=== PATIENT | male | born 1985 | race Caucasian/White ===

== ENCOUNTER 2016-11-16 14:05 | Emergency (ER) | payer SELFPAY ==
[~2016-11-16] VITALS: Ht 175.3 cm; Wt 105.0 kg
[~2016-11-16 14:05] MED LIST: TRAM50 PO; ZOFR4TAB3 SL
[2016-11-16 14:09] VITALS: BP 171/96; PULSE 111; RESP 16; TEMP 98.1; O2SAT 95
--- NOTE | 2016-11-16 14:42 | PD ---
HPI Chief Complaint: Hypertension Time Seen by Provider: 14:41 Travel History International Travel<30 days: No Contact w/Intl Traveler<30days: No Traveled to known affect area: No History of Present Illness HPI 31-year-old male came to the emergency room with history of not feeling good. He checked his blood pressure earlier today and it was 170 systolic. He decided to go to [facility]. Patient was unhappy with the fact that they had done only a CAT scan of his head and he was told that everything was normal and he was discharged home on Fioricet. Patient is concerned that there is something more going on. He seems really anxious. His blood pressure in triage was 172 systolic and heart rate of 111. He says he's been feeling some tingling in both his hands. There is history of hypertension and diabetes that runs in the family. He is currently is not on any medications. He does not have a primary care doctor. He is a smoker and works as a cook in a restaurant. He says lately the job has been stressful. [facility] Past Medical History Narrative Medical List of his past medical, surgical, social and family history was reviewed from the nursing note. Asthma: Yes (SPORTS RELATED A CHILD) Blood Disorders: No Anxiety: No Depression: No Cancer: No Cardiovascular Problems: No Chemotherapy: No Diabetes: No Diminished Hearing: No Endocrine: No Genitourinary: No Herniated Disk: Yes Immune Disorder: No Musculoskeletal: Yes Neurologic: No Psychiatric: No Reproductive: No Respiratory: Yes Radiation Therapy: No Thyroid Disease: No Past Surgical History Abdominal Surgery: No AICD: No Arteriovenous Shunt: No Cardiac Surgery: No Ear Surgery: No Endocrine Surgery: No Eye Surgery: No Genitourinary Surgery: No Gynecologic Surgery: No Insulin Pump: No Joint Replacement: No Neurologic Surgery: No Oral Surgery: No Pacemaker: No Thoracic Surgery: No Other Surgery: Yes Social History Alcohol Use: Yes (SOC) Tobacco Use: Yes (1 PPD) Substance Use: No Allergies-Medications (Allergen,Severity, Reaction): Coded Allergies: No Known Allergies (Verified , 11/16/16) Comments No known drug allergies. Reported Meds & Prescriptions Reported Meds & Active Scripts Active No Active Prescriptions or Reported Medications Narrative Medication List of his home medications reviewed from the nursing note. Review of Systems Except as stated in HPI: all other systems reviewed are Neg Physical Exam Narrative GENERAL: Awake, alert, anxious, obese SKIN: Warm and dry. HEAD: Atraumatic. Normocephalic. EYES: Pupils equal and round. No scleral icterus. No injection or drainage. ENT: No nasal bleeding or discharge. Mucous membranes pink and moist. NECK: Trachea midline. No JVD. CARDIOVASCULAR: Regular rate and rhythm. No murmur appreciated. RESPIRATORY: No accessory muscle use. Clear to auscultation. Breath sounds equal bilaterally. GASTROINTESTINAL: Abdomen soft, non-tender, nondistended. Hepatic and splenic margins not palpable. MUSCULOSKELETAL: No obvious deformities. No clubbing. No cyanosis. No edema. NEUROLOGICAL: Awake and alert. No obvious cranial nerve deficits. Motor grossly within normal limits. Normal speech. PSYCHIATRIC: Appropriate mood and affect; insight and judgment normal. Data Data Last Documented VS Orders Complete Blood Count With Diff (11/16/16 14:49) Basic Metabolic Panel (Bmp) (11/16/16 14:49) Electrocardiogram (11/16/16 ) Portable Router Operator / Telemetry [email or web address] (11/16/16 14:49) Troponin I (11/16/16 14:49) Labs MDM Medical Decision Making Medical Screen Exam Complete: Yes Emergency Medical Condition: Yes Medical Record Reviewed: Yes Interpretation(s) Twelve-lead EKG was reviewed by me. Normal sinus rhythm, right axis deviation, nonspecific ST-T wave changes. Heart rate of 83 bpm. Differential Diagnosis Essential hypertension, anxiety Narrative Course 4:19 PM blood test results are back and relatively normal limit. Patient has some leukocytosis. I will discharge him home. Procedures EKG Prior to Arrival: No Diagnosis Primary Impression: Anxiety about health [facility] Primary Care Physician Additional Instructions: Please find a primary care and follow-up with him or her. Return to the ER if the condition worsens or any other new concerns. Med/Other Pt SpecificInfo: No Change to Meds Scripts No Active Prescriptions or Reported Meds Disposition: 01 DISCHARGE HOME Condition: Stable Ronda Luna MD Nov 16, 2016 14:42 Neutrophils (%) (Auto) 74.2 % Lymphocytes (%) (Auto) 16.7 % Monocytes (%) (Auto) 5.7 % Eosinophils (%) (Auto) 2.4 % Basophils (%) (Auto) 1.0 % Neutrophils # (Auto) 9.9 TH/MM3 Lymphocytes # (Auto) 2.2 TH/MM3 Monocytes # (Auto) 0.8 TH/MM3 Eosinophils # (Auto) 0.3 TH/MM3 Basophils # (Auto) 0.1 TH/MM3 CBC Comment DIFF FINAL Differential Comment Sodium Level 142 MEQ/L Potassium Level 3.5 MEQ/L Chloride Level 108 MEQ/L Carbon Dioxide Level 28.0 MEQ/L Anion Gap 6 MEQ/L Blood Urea Nitrogen 9 MG/DL Creatinine 0.84 MG/DL Estimat Glomerular Filtration 107 ML/MIN Rate Random Glucose 97 MG/DL Calcium Level 8.8 MG/DL Troponin I LESS THAN 0.02 NG/ML MDM Medical Decision Making Medical Screen Exam Complete: Yes Emergency Medical Condition: Yes Medical Record Reviewed: Yes Interpretation(s) Twelve-lead EKG was reviewed by me. Normal sinus rhythm, right axis deviation, nonspecific ST-T wave changes. Heart rate of 83 bpm. Differential Diagnosis Essential hypertension, anxiety Narrative Course 4:19 PM blood test results are back and relatively normal limit. Patient has some leukocytosis. I will discharge him home. Procedures EKG Prior to Arrival: No Diagnosis Primary Impression: Anxiety about health Referrals: [facility] Primary Care Physician Additional Instructions: Please find a primary care and follow-up with him or her. Return to the ER if the condition worsens or any other new concerns. Med/Other Pt SpecificInfo: No Change to Meds Scripts No Active Prescriptions or Reported Meds Disposition: 01 DISCHARGE HOME Condition: Stable Ronda Luna MD Nov 16, 2016 14:42 Ronda Luna MD Nov 16, 2016 14:42
[2016-11-16 15:00] VITALS: BP 117/78; PULSE 93; RESP 19; O2SAT 96
[2016-11-16 15:30] VITALS: BP 132/64; PULSE 81; RESP 20; O2SAT 97
[2016-11-16 15:48] LABS: AUTOMATED NEUTROPHIL # 9.9 TH/MM3 (1.8-7.7); BASOPHIL # 0.1 TH/MM3 (0-0.2); EOSINOPHIL # 0.3 TH/MM3 (0-0.4); EOSINOPHIL % 2.4 % (0.0-4.0); HEMATOCRIT 44.1 % (39.0-51.0); HEMO FLAGS DIFF FINAL; LYMPH % 16.7 % (9.0-44.0); LYMPHOCYTE # 2.2 TH/MM3 (1.0-4.8); MEAN CELL VOLUME 86.5 FL (80.0-100.0); MEAN CORPUSCULAR HEMOGLOBIN 29.1 PG (27.0-34.0); MEAN CORPUSCULAR HGB CONC 33.6 % (32.0-36.0); MONO % 5.7 % (0.0-8.0); NEUT % 74.2 % (16.0-70.0); PLATELET COUNT 217 TH/MM3 (150-450); RED CELL DISTRIBUTION WIDTH 14.4 % (11.6-17.2); WHITE BLOOD COUNT 13.3 TH/MM3 (4.0-11.0)
[2016-11-16 16:07] LABS: ANION GAP 6 MEQ/L (5-15); BLOOD UREA NITROGEN 9 MG/DL (7-18); CHLORIDE 108 MEQ/L (98-107); GLOMERULAR FILTRATION RATE 107 ML/MIN (>89); POTASSIUM 3.5 MEQ/L (3.5-5.1); SODIUM (NA) 142 MEQ/L (136-145)
[2016-11-16 16:59] VITALS: BP 149/86
--- NOTE | 2016-11-17 14:43 | EKG ---
Date Performed: 11/16/2016 Time Performed: 15:26:18 PTAGE: 31 years EKG: Sinus rhythm NORMAL ECG Compared to prior tracing no significant change PREVIOUS TRACING : 08/05/2010 16.45 DOCTOR: Tin Walker Interpretating Date/Time 11/17/2016 14:40:07
== END 2016-11-16 17:00 | disposition home or self-care (01) ==
LOC: NEPE 14:05
DX: F41.8 Other specified anxiety disorders (principal); R03.0 Elevated blood-pressure reading, without diagnosis of hypertension; R20.2 Paresthesia of skin; F17.200 Nicotine dependence, unspecified, uncomplicated; Z87.09 Personal history of other diseases of the respiratory system; Z87.39 Personal history of other diseases of the musculoskeletal system and connective tissue
CPT/HCPCS: 80048; 84484; 85025; 93005